=== PATIENT | female | born 1955 | race Caucasian/White ===

== ENCOUNTER → 2019-07-25 | Outpatient (CLI) | payer MEDICARE ==
[~2019-07-25] MED LIST: ABAC300; ACYC800 PO; ALBU3IS INH; ALBU90OI6 INH; ALPR1 PO; AZIT250 PO; AZIT500 PO; BENZ100A; BENZ100A PO; BIOTIN2500 MCG PO; BISA10S PR; BUDE6HFA; BUDE6HFA INH; BUME2; BUME2 PO; CALCA500CH PO; CEFP200 PO; CLON.5 PO; CLOT10 SS; CODGUAEL; CODGUAEL PO; COLE625; COLE625 PO; CYCL10 PO; CYCLOPHOSPHAMID PO; CYCLOPHOSPHAMIDE MT; DEXA4 PO; DEXAMETHASONE MT; DIAZ5 PO; DIPATR; DIPATR PO; DOC250 PO; DOCU100 PO; DULERA 200 MCG/13 GM INH; Diazepam5 MG PO; FURO20 PO; FURO40; FURO40 PO; FURO80 PO; GABA100 PO; GABA300 PO; GABA600 PO; GUAI600T33 PO; HYDCHL25 PO; HYDMOR2 PO; HYDPAM25 PO; HYDR1TAB94 PO; Hydrocodone-Ap1 EA23 PO; INSUASPI SC; Klor-Con 1010 MEQ PO; LEVFLO500 PO; LEVO750 PO; LISI5 PO; LOSA25 PO; Lisinopril2.5 MG PO; METO2.5 PO; Milk Of Ma400 MG/5 M PO; Novolin R100 UNIT/M SQ; OMEP20ER PO; ONDA4ODT MM; POTCHL10ER; POTCHL10ER PO; POTCHL20ER PO; PRED20; PRED20 PO; PROC10 PO; PROC25S PR; PROP10 PO; SACC250C; SENN187 PO; SIMV10 PO; SODCHL.65S; SPIR25; SPIR25 PO; Senna8.6 MG PO; TIOT18 INH; TIOT18 PO; TRIA80TC TOP; TRIA80TC UD; Ventolin Soln3 ML INH; ZAROXOLYN PO
[2019-07-25 12:24] LABS: Creatinine Urine 72.6 mg/dL (27.00-270.00); Protein, Urine Quantitative 14.5 mg/dL (0.0-11.9)
[2019-07-25 12:28] LABS: Microalbumin, Urine Quant. 97.4 mg/L (0.000-20.000)
== END | disposition home or self-care (01) ==
LOC: LAB SHORT 08:22 → OLS 08:22 → LAB FUT 07-18 13:10
PROVIDERS: Internal Medicine Nephrology
DX: N18.2 Chronic kidney disease, stage 2 (mild) (principal); D63.1 Anemia in chronic kidney disease; R80.9 Proteinuria, unspecified
CPT/HCPCS: 81050; 82043; 82570; 84156